=== PATIENT | female | born 1950 | race Two or more races ===

== ENCOUNTER 2021-11-22 00:23 | Inpatient (IN) | payer MEDICARE, OTHER ==
[~2021-11-22] VITALS: Ht 157.5 cm; Wt 57.2 kg
[~2021-11-22 00:23] MED LIST: CARB-96 PO; DOCU100T2 PO; ENTA200T PO; FAMO40TA7 PO; GABA-532 PO; LISI-768 PO; LORA1TAB PO; MECL-159 PO; PRAM1.5T7 PO; SERT100T12 PO; SIMV-46 PO; TRAM50TA2 PO; [UNRECOGNIZED DRUG - CODE] PO
--- NOTE | 2021-11-22 00:38 | NUR ---
SEEN BY DR MADRIGAL AT BEDSIDE
--- NOTE | 2021-11-22 00:56 | NUR ---
IFC F16 INSERTED. URINE SPECIMEN COLLECTED AND SENT TO LAB
--- NOTE | 2021-11-22 01:21 | NUR ---
CAME BACK FROM CT SCAN
--- NOTE | 2021-11-22 01:37 | NUR ---
VIDEOTAPE SALES REPRESENTATIVE AT BEDSIDE
[2021-11-22 02:16] LABS: BASOPHILS # (AUTO) 0.1 K/uL (0.0-0.2); EOSINOPHILS % (AUTO) 1.8 % (0.0-6.0); HEMATOCRIT 37 % (33-45); LYMPHOCYTES # (AUTO) 1.7 K/uL (0.8-4.8); LYMPHOCYTES % (AUTO) 25.8 % (20.0-44.0); MEAN CORPUSCULAR HGB CONC 36 g/dl (31.0-36.0); MEAN CORPUSCULAR VOLUME 85 fL (82-100); MONOCYTES # (AUTO) 0.5 K/uL (0.1-1.30); MONOCYTES % (AUTO) 8.1 % (2.0-12.0); NEUTROPHILS # (AUTO) 4.2 K/uL (1.8-8.9); NEUTROPHILS % (AUTO) 63.3 % (43.0-81.0); PLATELET COUNT (AUTO) 242 K/uL (150-450); WHITE BLOOD COUNT (AUTO) 6.6 K/uL (4.3-11.0)
--- NOTE | 2021-11-22 02:23 | NUR ---
DR. SHIVANI JIMENEZ FOR SURGERY CONSULT
--- NOTE | 2021-11-22 02:27 | NUR ---
NG TUBE INSERTED.
--- NOTE | 2021-11-22 02:27 | NUR ---
COVID SWAB DONE
[2021-11-22 02:34] LABS: CALCIUM, SERUM 9.1 mg/dL (8.5-10.1); CARBON DIOXIDE 33 mmol/L (21-32); CHLORIDE 101 mmol/L (98-107); CREATININE 0.6 mg/dL (0.6-1.3); GLUCOSE 109 mg/dL (74-106); SODIUM SERUM 139 mmol/L (136-145); UREA NITROGEN, BLOOD 10 mg/dL (7-18)
[2021-11-22 02:35] LABS: POTASSIUM 1.6 mmol/L (3.5-5.1)
--- NOTE | 2021-11-22 02:36 | NUR ---
CRITICAL : POTASSIUM 1.6
[2021-11-22 02:40] LABS: ALANINE AMINOTRANSFERASE 6 U/L (12-78); ALBUMIN 3.6 g/dL (3.4-5.0); ALKALINE PHOSPHATASE 57 U/L (46-116); ASPARTATE AMINOTRANSFERASE 17 U/L (15-37); BILIRUBIN,DIRECT 0.3 mg/dL (0.0-0.2); LIPASE 60 U/L (73-393); TOTAL PROTEIN, SERUM 7.8 g/dL (6.4-8.2)
[2021-11-22 02:40] LABS: BILIRUBIN,URINE NEGATIVE (NEGATIVE); COLOR,URINE YELLOW (YELLOW); LEUKOCYTE ESTERASE ,URINE NEGATIVE (NEGATIVE); NITRITE, URINE NEGATIVE (NEGATIVE); PROTEIN,URINE NEGATIVE (NEGATIVE); UGLUCOSE NEGATIVE (NEGATIVE); UROBILINOGEN,URINE 0.2 EU/dL (0.2)
[2021-11-22] MEDS: POTASSIUM CL. PREMIX PERIPHER. 50 ML IV SCH ×11 (02:40→10:10)
--- NOTE | 2021-11-22 02:40 | NUR ---
IV CANNULA G18 INSERTED ON RIGHT HAND. 1ST BAG OF KCL 10MEQ/50CC STARTED.
--- NOTE | 2021-11-22 02:55 | NUR ---
Saida vizcarra in [facility] - 11/22/21 at [address] PARRISH MANAGER INVENTORY MANAGEMENT SURGEON BARBARA ONCE AGAIN
--- NOTE | 2021-11-22 02:55 | NUR ---
DR. PARRISH SHELTER DIRECTOR SURGEON PAGED ONCE AGAIN
--- NOTE | 2021-11-22 03:00 | NUR ---
Saida vizcarra in ED - 11/22/21 at 1028 by ADOLFO IV CANNULA G18 INSERTED ON RIGHT HAND. NS FLUID STARTED TOGETHER WITH KCL DRIP.
--- NOTE | 2021-11-22 03:05 | NUR ---
CXR AND KUB XRAY DONE AT BEDSIDE.
--- NOTE | 2021-11-22 03:05 | NUR ---
WRONG DOCUMENTATION IN [facility] ABOUT KCL DRIP. KCL DRIP NOT ADMINISTERED AT 0305H.
--- NOTE | 2021-11-22 03:41 | NUR ---
2ND BAG OF KCL FINISHED. TO START 3RD BAG OF KCL DRIP
--- NOTE | 2021-11-22 03:41 | NUR ---
2ND BAG OF KCL 10MEQ/50ML STARTED.
--- NOTE | 2021-11-22 04:27 | NUR ---
CALLED DAUGHTER RUBY, INFORMED HER ABOUT HER MOM BEING IN THE HOSPITAL.
[2021-11-22] MEDS ORDERED: ACETAMINOPHEN 650 MG/SUPP.RECT RC PRN (04:30)
[2021-11-22] MEDS ORDERED: MAGNESIUM HYDROXIDE 30 ML UDC PO PRN ×2 (04:30→13:30)
[2021-11-22] MEDS ORDERED: ONDANSETRON HCL/PF 4 MG/2 ML VIAL IVP PRN (04:30)
[2021-11-22] MEDS ORDERED: Z GUARD REMEDY 4 OZ OINT TP PRN (04:30)
[2021-11-22] MEDS ORDERED: MORPHINE SULFATE INJ 2 MG/ML DISP.SYRIN IV PRN (04:30)
--- NOTE | 2021-11-22 04:51 | NUR ---
Saida vizcarra in ED - 11/22/21 at 0603 by ADOLFO 2ND BAG OF KCL DRIP FINISHED.
--- NOTE | 2021-11-22 04:52 | NUR ---
3RD BAG OF KCL 10MEQ/50ML STARTED.
--- NOTE | 2021-11-22 05:51 | NUR ---
3RD BAG KCL DRIP FINISHED, 4TH BAG OF KCL 10MEQ/50CC STARTED
[2021-11-22] MEDS ORDERED: POTASSIUM CL. PREMIX PERIPHER. 50 ML ONE ×5 (05:52→10:26)
--- NOTE | 2021-11-22 06:03 | NUR ---
REPORT GIVEN TO NELY HARRELL. PER RN, THEY CANNOT ACCOMODATE PATIENT IN 3WEST BECAUSE OF SERUM K WHICH IS 1.6. I EXPLAINED THAT PATIENT IS DNR. PER RN, PATIENT SHOULD BE ICU. DR MADRIGAL MADE AWARE.
--- NOTE | 2021-11-22 06:49 | NUR ---
REPORT GIVEN TO NELY CARBALLO
[2021-11-22] MEDS ORDERED: NA PHOS,M-B/NA PHOS,DI-BA 1 EA ENEMA RC STA (06:51)
--- NOTE | 2021-11-22 06:58 | NUR ---
MANUAL EXTRACTION OF FECES ATTEMPTED BY DR MADRIGAL. ONLY GAS WAS EXTRACTED.
--- NOTE | 2021-11-22 07:00 | NUR ---
4TH KCL DRIP FINISHED. STARTED 5TH BAG OF KCL 10MEQ/50ML.
[2021-11-22] MEDS ORDERED: NA PHOS,M-B/NA PHOS,DI-BA 1 EA ENEMA RC ONE (07:12)
--- NOTE | 2021-11-22 08:05 | NUR ---
5TH KCL DRIP FINISHED. 6TH KCL DRIP OF 10MEQ/50CC STARTED.
[2021-11-22] MEDS ORDERED: EYEL1KIT TP (08:08)
[2021-11-22] MEDS ORDERED: LACT10SO3 PO (08:08)
[2021-11-22] MEDS ORDERED: POTA-10 PO (08:08)
[2021-11-22] MEDS ORDERED: MIDO2.5T PO (08:08)
[2021-11-22] MEDS ORDERED: MULT-447 PO (08:08)
[2021-11-22] MEDS ORDERED: OMEG10006 PO (08:08)
[2021-11-22] MEDS ORDERED: ACET-868 PO (08:08)
[2021-11-22] MEDS ORDERED: ACET-2605 PO (08:08)
[2021-11-22] MEDS ORDERED: POLY15DR40 EACHEYE (08:08)
[2021-11-22] MEDS ORDERED: MAGN400O6 PO (08:08)
[2021-11-22] MEDS ORDERED: MAGN400T26 PO (08:08)
[2021-11-22] MEDS ORDERED: BISA10SU11 RC (08:08)
[2021-11-22] MEDS ORDERED: CARB1TAB21 PO (08:08)
[2021-11-22] MEDS ORDERED: NA P133E RC (08:08)
[2021-11-22] MEDS ORDERED: SENN-261 PO (08:08)
[2021-11-22] MEDS: IV NS 0.9% 1,000 ML IV PRN (08:15)
--- NOTE | 2021-11-22 09:09 | NUR ---
6TH KCL DRIP FINISHED. STARTED 7TH KCL DRIP OF 10MEQ/50CC.
--- NOTE | 2021-11-22 09:14 | NUR ---
DR YING CAME TO SEE PATIENT. HE ASKED TO REMOVE NG TUBE.
[2021-11-22] MEDS ORDERED: PANTOPRAZOLE 40 MG VIAL ONE (09:39)
[2021-11-22] MEDS: PANTOPRAZOLE 40 MG VIAL IV SCH (09:42)
--- NOTE | 2021-11-22 09:45 | NUR ---
CBC AND CHEM [address] YING. THE ORDERS ARE READ BACK, VERIFIED. NOTED AND CARRIED OUT.
[2021-11-22 10:42] LABS: BASOPHILS # (AUTO) 0.1 K/uL (0.0-0.2); BASOPHILS % (AUTO) 0.5 % (0.0-2.0); EOSINOPHILS % (AUTO) 0.3 % (0.0-6.0); HEMATOCRIT 39 % (33-45); HEMOGLOBIN 13.5 g/dL (11.5-14.8); LYMPHOCYTES # (AUTO) 1.3 K/uL (0.8-4.8); LYMPHOCYTES % (AUTO) 12.1 % (20.0-44.0); MEAN CORPUSCULAR HGB CONC 34 g/dl (31.0-36.0); MEAN CORPUSCULAR VOLUME 87 fL (82-100); MONOCYTES # (AUTO) 0.7 K/uL (0.1-1.30); MONOCYTES % (AUTO) 6.5 % (2.0-12.0); NEUTROPHILS # (AUTO) 8.4 K/uL (1.8-8.9); NEUTROPHILS % (AUTO) 80.6 % (43.0-81.0); PLATELET COUNT (AUTO) 268 K/uL (150-450); RED BLOOD CELL COUNT(AUTO) 4.53 MIL/uL (4.0-5.2); WHITE BLOOD COUNT (AUTO) 10.4 K/uL (4.3-11.0)
[2021-11-22 10:56] LABS: CALCIUM, SERUM 8.4 mg/dL (8.5-10.1); CREATININE 0.6 mg/dL (0.6-1.3)
[2021-11-22 11:02] LABS: POTASSIUM 2.3 mmol/L (3.5-5.1)
--- NOTE | 2021-11-22 11:10 | NUR ---
PATIENT SEEN BY DR YING. SAID THAT PATIENT CAN EAT. DIET REQUESTED FROM KITCHEN.
--- NOTE | 2021-11-22 11:10 | NUR ---
DR YING MADE AWARE OF BP 161/97 AND HR 98. STATED THAT HE WILL ENTER ORDER. PRIMARY NURSE RADHA MADE AWARE.
--- NOTE | 2021-11-22 11:25 | NUR ---
DR. YING DISCONTINUED NPO ORDER. HE SAID TO PUT PATIENT IN (FELISA, MECHANICALLY SOFT DIET THIN CONSISTENCY) START LUNCH TIME. ORDER READ BACK AND VERIFIED, NOTED AND CARRIED OUT. KITCHEN MADE AWARE.
--- NOTE | 2021-11-22 11:29 | NUR ---
GOT BED 308
--- NOTE | 2021-11-22 11:31 | NUR ---
8TH BAG OF KCL DRIP FINISHED. DR YING IS AWARE.
--- NOTE | 2021-11-22 12:02 | NUR ---
REPORT GIVEN TO NELY PINA. PATIENT WILL BE TRANSFERRING TO ROOM
[2021-11-22 12:19] LABS: CALCIUM, SERUM 8.4 mg/dL (8.5-10.1); CREATININE 0.6 mg/dL (0.6-1.3)
[2021-11-22 12:22] LABS: POTASSIUM 2.3 mmol/L (3.5-5.1)
--- NOTE | 2021-11-22 12:22 | NUR ---
DR YING CONTACTED FOR CONFIRMATION IF PATIENT WILL STILL BE IN TELE 308-2 INITIAL ORDER BY HERMINIO GIORDANO AT AROUND 0418AM DESPITE 1ST S.K OF 1.6 AND THE REPEAT OF S.K AT 2.3. DR YING AGREED TO PLACE PATIENT IN ROOM 308-2. WILL MOVE PATIENT TO ROOM. Addendum: 11/22/[address] YING AGREED FOR PATIENT TO BE ADMITTED IN TELE STATUS. NURSE PINA REMINDED TO CONTINUE FOLLOW UP WITH DR YING FOR POTASSIUM REPLACEMENT ( DR YING WAS NOTIFIED EARLIER BY ER NURSE AND DR YING TOLD THE ER NURSE THAT HE WILL ENTER POTASSIUM REPLACEMENT ORDERS).
--- NOTE | 2021-11-22 13:00 | NUR ---
PLATFORM MATERIAL HANDLER MANAGER RECEIVING NOTES PATIENT WAS RECEIVED A/O X 4, SINHALA SPEAKING, WITH TELE MONITOR IN PLACE READING NSR. PARKER CATHETER IN PLACE DRAINING DARK KEARA URINE TO GRAVITY. R HAND # [address] WITH NS INFUSING @ 75 ML/HR. NO COMPLAINTS OF PAIN OR DISCOMFORT AT THIS TIME. STOMACH DISTENSION NOTED DUE TO C/C SBO. SAFETY MEASURES IN PLACE: BED IN LOWEST LOCKED POSITION, SIDE RAILS UP X 3, CALL LIGHT WITHIN REACH. WILL CONTINUE TO MONITOR.
--- NOTE | 2021-11-22 13:01 | NUR ---
TRANSFERRED PATIENT TO ROOM
[2021-11-22] MEDS ORDERED: BISACODYL SUPP (10 MG) 10 MG/SUPP.RECT SUPP.RECT RC PRN (13:30)
[2021-11-22] MEDS ORDERED: ACETAMINOPHEN 325 MG TABLET PO PRN (13:30)
[2021-11-22] MEDS ORDERED: NA PHOS,M-B/NA PHOS,DI-BA 1 EA ENEMA RC PRN (13:30)
[2021-11-22] MEDS ORDERED: POTASSIUM CHLORIDE 20 MEQ TAB.PRT.SR PO ONE (14:00)
[2021-11-22 16:39] LABS: CALCIUM, SERUM 8.4 mg/dL (8.5-10.1); CARBON DIOXIDE 33 mmol/L (21-32); CHLORIDE 106 mmol/L (98-107); CREATININE 0.7 mg/dL (0.6-1.3); GLUCOSE 120 mg/dL (74-106); SODIUM SERUM 147 mmol/L (136-145); UREA NITROGEN, BLOOD 7 mg/dL (7-18)
[2021-11-22 16:44] LABS: POTASSIUM 2.4 mmol/L (3.5-5.1)
[2021-11-22] MEDS ORDERED: [UNRECOGNIZED DRUG - OTHER] TP SCH (17:00)
[2021-11-22] MEDS: MIDODRINE HCL 2.5 MG TABLET PO SCH (17:00)
[2021-11-22] MEDS: CARBIDOPA/LEVODOPA 25/100 MG 1 UDTAB PO SCH ×2 (17:29→20:28)
[2021-11-22] MEDS: POLYVINYL ALCOHOL 15 ML BOTTLE EACHEYE SCH (17:29)
[2021-11-22] MEDS: DOCUSATE SODIUM 100 MG CAPSULE PO SCH (17:29)
--- NOTE | 2021-11-22 19:30 | NUR ---
BRACE MAKER NOTES RECEIVED LAYING ON BED SLEEPING,AROUSABLE TO VERBAL STIMULI, A/O X3,SPEAK PARAGUAYAN,FAMILY MEMBERS AT BEDSIDE.AFIB UNCONTROLLED 117 ON TELE MONITOR THIS TIME.EARLIER AT 1915,MONITOR REPORTED PATIENT CONVERTED TO A-FIB FROM SR.STAT EKG WAS ORDERED AT 1921 UNDER HOSPITALIST HUNG,RESULT RELAYED TO HOSPITALIST AT 1999,WILL REVIEW THE PATIENT RECORD.
--- NOTE | 2021-11-22 19:45 | NUR ---
SPEEDOMETER MECHANIC NOTES OFFERED AGAIN TO HAVE NGT PLACEMENT BUT REFUSED.
[2021-11-22 20:00] VITALS: BP_SYST 101; BP_SYST 96; BP_DIAS 48; BP_DIAS 62
--- NOTE | 2021-11-22 20:28 | NUR ---
OVERNIGHT BABYSITTER NOTES C/O HEADACHE,TYLENOL 650MG PO,CRUSHED AND GIVEN WITH SIPS OF WATER,TAKEN WELL.
[2021-11-22] MEDS: LACTULOSE 10 G/15 ML UDC (PYXIS) PO SCH (22:00)
[2021-11-22] MEDS: SENNOSIDES 8.6 MG TABLET PO SCH (22:00)
[2021-11-22] MEDS: SIMVASTATIN 20 MG TABLET PO SCH (22:11)
[2021-11-22 23:38] VITALS: BP 106/55
[2021-11-23 00:02] VITALS: BP 106/55
[2021-11-23 04:00] VITALS: BP 123/62
--- NOTE | 2021-11-23 06:35 | NUR ---
DYEHOUSE WORKER NOTES SLEEP WELL AT NIGHT,NO N/V NOTED,HAD LOOSE BM X 2,OFFERED TWICE NGT PLACEMENT BUT REFUSED,ABDOMEN REMAINS DISTENDED BUT SOFT.MORNING CARE RENDERED.IN NO ACUTE DISTRESS.
[2021-11-23 06:54] LABS: BASOPHILS # (AUTO) 0.1 K/uL (0.0-0.2); BASOPHILS % (AUTO) 0.6 % (0.0-2.0); EOSINOPHILS % (AUTO) 0.3 % (0.0-6.0); HEMATOCRIT 34 % (33-45); HEMOGLOBIN 11.9 g/dL (11.5-14.8); LYMPHOCYTES # (AUTO) 1.5 K/uL (0.8-4.8); LYMPHOCYTES % (AUTO) 16.3 % (20.0-44.0); MEAN CORPUSCULAR HGB CONC 35 g/dl (31.0-36.0); MEAN CORPUSCULAR VOLUME 87 fL (82-100); MONOCYTES # (AUTO) 0.7 K/uL (0.1-1.30); MONOCYTES % (AUTO) 7.3 % (2.0-12.0); NEUTROPHILS # (AUTO) 6.8 K/uL (1.8-8.9); NEUTROPHILS % (AUTO) 75.5 % (43.0-81.0); PLATELET COUNT (AUTO) 237 K/uL (150-450); RED BLOOD CELL COUNT(AUTO) 3.91 MIL/uL (4.0-5.2)
--- NOTE | 2021-11-23 07:26 | NUR ---
DRAWER IN DOBBY LOOM OPENING NOTE RECEIVED PT IN BED AWAKE, A/O X3, ABLE TO MAKE NEEDS KNOWN. ON O2 AT 2L/MIN VIA NC, TOLERATING WELL. BREATHING EVEN AND UNLABORED. NOT IN ANY SIGN OF RESPIRATORY DISTRESS. ON CARDIAC TELE MONITOR WITH CURRENT READING OF AFIB CONTROLLED WITH HR 70. NO C/O CARDIAC DISTRESS VOICED AT THIS TIME. PARKER CATH IN PLACE AND DRAINING WELL. IV ACCESS IN RIGHT HAND INTACT AND PATENT WITH NS INFUSING AT 75ML/MIN. SAFETY MEASURES IN PLACE: BED IN LOWEST AND LOCKED POSITION, SIDE RAILS UPX2, AND CALL LIGHT WITHIN REACH. WILL CONTINUE TO MONITOR PT.
[2021-11-23 07:28] LABS: CALCIUM, SERUM 8.8 mg/dL (8.5-10.1); CREATININE 0.8 mg/dL (0.6-1.3); MAGNESIUM 2.3 mg/dL (1.8-2.4); PHOSPHORUS 3.1 mg/dL (2.5-4.9)
[2021-11-23 07:33] LABS: POTASSIUM 2.2 mmol/L (3.5-5.1)
--- NOTE | 2021-11-23 07:50 | NUR ---
RN NOTE RECEIVED A CALL FROM GRETA PIERSON AT 0733, REPORTED CRITICAL LAB VALUE OF POTASSIUM LEVEL 2.2. CALLED DR. YING AND MADE AWARE WITH ORDERS TO GIVE POTASSIUM CHLORIDE 80 MEQ PO X1 DOSE AND POTASSIUM 40 MEQ IV THEN REPEAT POTASSIUM LEVEL AFTER IV ONE HOUR COMPLETED. NO C/O CARDIAC DISTRESS VOICED AT THIS TIME. WILL CONTINUE TO MONITOR PT.
[2021-11-23] MEDS: POTASSIUM CL. PREMIX PERIPHER. 50 ML IV SCH ×4 (07:58→11:30)
[2021-11-23 08:00] VITALS: BP 123/79
[2021-11-23] MEDS ORDERED: POTASSIUM CHLORIDE 20 MEQ TAB.PRT.SR PO ONE (08:00)
[2021-11-23] MEDS: MULTIVIT W/MINERALS 1 TAB TABLET PO SCH (08:57)
[2021-11-23] MEDS: PANTOPRAZOLE 40 MG VIAL IV SCH (08:57)
[2021-11-23] MEDS: CARBIDOPA/LEVODOPA 25/100 MG 1 UDTAB PO SCH ×4 (08:57→21:39)
[2021-11-23] MEDS: MAGNESIUM OXIDE 400 MG TABLET PO SCH (08:57)
[2021-11-23] MEDS: MIDODRINE HCL 2.5 MG TABLET PO SCH (09:00)
[2021-11-23] MEDS ORDERED: Medication Not On Formulary EA (Omega-3 Fatty Acids (Omega-3) 1,000 MG) PO SCH (09:00)
[2021-11-23] MEDS: DOCUSATE SODIUM 100 MG CAPSULE PO SCH ×2 (09:00→16:06)
[2021-11-23] MEDS: POTASSIUM CHLORIDE 10 MEQ TABLET.SA PO SCH (09:02)
[2021-11-23] MEDS: POLYVINYL ALCOHOL 15 ML BOTTLE EACHEYE SCH ×3 (09:04→16:54)
[2021-11-23 12:00] VITALS: BP 131/66
[2021-11-23] MEDS: METOCLOPRAMIDE HCL 10 MG/2 ML VIAL IV SCH ×2 (14:43→20:38)
[2021-11-23] MEDS: IV NS 0.9% 1,000 ML IV PRN (15:02)
[2021-11-23 15:59] LABS: CALCIUM, SERUM 8.7 mg/dL (8.5-10.1); CARBON DIOXIDE 28 mmol/L (21-32); CHLORIDE 110 mmol/L (98-107); CREATININE 0.7 mg/dL (0.6-1.3); GLUCOSE 85 mg/dL (74-106); POTASSIUM 3.4 mmol/L (3.5-5.1); SODIUM SERUM 148 mmol/L (136-145); UREA NITROGEN, BLOOD 14 mg/dL (7-18)
[2021-11-23 16:00] VITALS: BP 159/80
[2021-11-23] MEDS: SIMETHICONE 80 MG TAB.CHEW PO SCH (16:06)
[2021-11-23] MEDS: MIDODRINE HCL (5MG) 5 MG TABLET PO SCH (16:07)
--- NOTE | 2021-11-23 19:22 | NUR ---
FUEL PILOT ENGINEER CLOSING NOTE PT IN BED AWAKE, A/O X3, ABLE TO MAKE NEEDS KNOWN. ON O2 AT 2L/MIN VIA NC, TOLERATING WELL. BREATHING EVEN AND UNLABORED. NOT IN ANY SIGN OF RESPIRATORY DISTRESS. ON CARDIAC TELE MONITOR WITH CURRENT READING OF AFIB CONTROLLED WITH HR 70. NO C/O CARDIAC DISTRESS VOICED AT THIS TIME. PARKER CATH IN PLACE AND DRAINING WELL. IV ACCESS IN RIGHT HAND INTACT AND PATENT WITH NS INFUSING AT 75ML/MIN. ALL NEEDS ATTENDED. KEPT CLEAN AND COMFORTABLE. SAFETY MEASURES IN PLACE: BED IN LOWEST AND LOCKED POSITION, SIDE RAILS UPX2, AND CALL LIGHT WITHIN REACH. ENDORSED TO INSTRUMENT REPAIRER NURSE FOR SHIRA.
--- NOTE | 2021-11-23 19:30 | NUR ---
RN OPENING NOTE PATIENT IN BED, AWAKE. PATIENT IS A/O X 3, ABLE TO MAKE NEEDS KNOWN. PATIENT ON 2LPM VIA NC TOLERATING WELL, NO SOB OR RESPIRATORY DISTRESS NOTED. PATIENT'S TELE MONITOR READS AFIB/AFLUTTER 66 BPM. PATIENT HAS A PARKER CATHETER IN PLACE DRAINING VIA GRAVITY. NO PAIN VERBALIZED AT THIS TIME. PATIENT'S ABDOMEN NOTED TO BE DISTENDED AND ROUND. R HAND 18 G PATENT AND INTACT WITH NS AT 75 ML/HR ONGOING. SAFETY MEASURES IN PLACE: BED LOCKED AND IN LOWEST POSITION, CALL LIGHT WITHIN REACH, SIDE RAILS UP. WILL MONITOR PATIENT CLOSELY.
[2021-11-23 20:00] VITALS: BP 150/83
[2021-11-23] MEDS: SIMVASTATIN 20 MG TABLET PO SCH (21:38)
[2021-11-23] MEDS: SENNOSIDES 8.6 MG TABLET PO SCH (21:57)
[2021-11-23] MEDS: LACTULOSE 10 G/15 ML UDC (PYXIS) PO SCH (21:57)
[2021-11-24] VITALS: BP 142/86
[2021-11-24] MEDS: METOCLOPRAMIDE HCL 10 MG/2 ML VIAL IV SCH ×4 (01:44→20:41)
[2021-11-24 04:00] VITALS: BP 151/86
[2021-11-24] MEDS: IV NS 0.9% 1,000 ML IV PRN (05:42)
[2021-11-24 06:23] LABS: BASOPHILS # (AUTO) 0.1 K/uL (0.0-0.2); BASOPHILS % (AUTO) 0.8 % (0.0-2.0); EOSINOPHILS % (AUTO) 1.5 % (0.0-6.0); HEMATOCRIT 33 % (33-45); HEMOGLOBIN 11.5 g/dL (11.5-14.8); LYMPHOCYTES # (AUTO) 1.2 K/uL (0.8-4.8); LYMPHOCYTES % (AUTO) 14.2 % (20.0-44.0); MEAN CORPUSCULAR HGB CONC 35 g/dl (31.0-36.0); MEAN CORPUSCULAR VOLUME 88 fL (82-100); MONOCYTES # (AUTO) 0.4 K/uL (0.1-1.30); MONOCYTES % (AUTO) 5.4 % (2.0-12.0); NEUTROPHILS # (AUTO) 6.5 K/uL (1.8-8.9); NEUTROPHILS % (AUTO) 78.1 % (43.0-81.0); PLATELET COUNT (AUTO) 208 K/uL (150-450); RED BLOOD CELL COUNT(AUTO) 3.79 MIL/uL (4.0-5.2); WHITE BLOOD COUNT (AUTO) 8.3 K/uL (4.3-11.0)
[2021-11-24 06:55] LABS: CALCIUM, SERUM 8.5 mg/dL (8.5-10.1); CREATININE 0.7 mg/dL (0.6-1.3); MAGNESIUM 2.4 mg/dL (1.8-2.4); PHOSPHORUS 2.7 mg/dL (2.5-4.9)
--- NOTE | 2021-11-24 07:30 | NUR ---
PT RECEIVED RESTING COMFORTABLY IN BED. NO S/S OR C/O PAIN OR DISTRESS NOTED. SIDE RAILS UP X2, CALL LIGHT LEFT WITHIN REACH. WILL CONTINUE PLAN OF CARE.
[2021-11-24 07:35] LABS: POTASSIUM 2.6 mmol/L (3.5-5.1)
[2021-11-24 08:00] VITALS: BP 162/98
[2021-11-24] MEDS ORDERED: POTASSIUM CHLORIDE 20 MEQ TAB.PRT.SR PO ONE (08:30)
[2021-11-24] MEDS: IV PREMIX D5 1/2NS + KCL 1,000 ML IV PRN ×2 (08:42→22:56)
[2021-11-24] MEDS: POTASSIUM CL. PREMIX PERIPHER. 50 ML IV SCH ×4 (08:42→15:17)
[2021-11-24] MEDS: DOCUSATE SODIUM 100 MG CAPSULE PO SCH ×2 (08:43→16:48)
[2021-11-24] MEDS: MAGNESIUM OXIDE 400 MG TABLET PO SCH (08:43)
[2021-11-24] MEDS: PANTOPRAZOLE 40 MG VIAL IV SCH (08:43)
[2021-11-24] MEDS: SIMETHICONE 80 MG TAB.CHEW PO SCH ×2 (08:43→16:48)
[2021-11-24] MEDS: MULTIVIT W/MINERALS 1 TAB TABLET PO SCH (08:43)
[2021-11-24] MEDS: POTASSIUM CHLORIDE 10 MEQ TABLET.SA PO SCH (08:43)
[2021-11-24] MEDS: CARBIDOPA/LEVODOPA 25/100 MG 1 UDTAB PO SCH ×4 (08:43→21:15)
[2021-11-24] MEDS: MIDODRINE HCL (5MG) 5 MG TABLET PO SCH ×2 (08:44→16:49)
[2021-11-24] MEDS: POLYVINYL ALCOHOL 15 ML BOTTLE EACHEYE SCH ×3 (09:14→16:50)
[2021-11-24 10:00] VITALS: BP 162/98
[2021-11-24] MEDS ORDERED: PETROLATUM,WHITE PACKET 5 GM PACKET TP PRN (10:00)
--- NOTE | 2021-11-24 12:00 | NUR ---
RECTAL TUBE INSERTED. PATENT. WILL CONTINUE TO MONITOR.
[2021-11-24 15:59] LABS: CALCIUM, SERUM 8.1 mg/dL (8.5-10.1); CREATININE 0.6 mg/dL (0.6-1.3); POTASSIUM 3.4 mmol/L (3.5-5.1)
[2021-11-24] MEDS ORDERED: PHENYLEPHRINE/SHK LV/MO/PET,WH 30 GM TUBE RC PRN (17:00)
--- NOTE | 2021-11-24 18:59 | NUR ---
PT RECEIVED RESTING COMFORTABLY IN BED. NO S/S OR C/O PAIN OR DISTRESS NOTED. SIDE RAILS UP X2, CALL LIGHT LEFT WITHIN REACH. WILL CONTINUE PLAN OF CARE. Addendum: 11/24/21 at 1902 by ROSSY GIBSON RN WRONG TIME
--- NOTE | 2021-11-24 19:02 | NUR ---
CHANGE OF SHIFT REPORT. PT RESTING COMFORTABLY IN BED. NO S/S OR C/O PAIN OR DISTRESS NOTED. SIDE RAILS UP X2, CALL LIGHT LEFT WITHIN REACH. PT KEPT CLEAN, DRY, AND COMFORTABLE. NO SIGNIFICANT CHANGES SINCE PREVIOUS SHIFT. WILL GIVE REPORT TO PAVITHRA MCKAY.
--- NOTE | 2021-11-24 19:20 | NUR ---
RN OPENING NOTE PATIENT IN BED, AWAKE. PATIENT IS A/O X 2-3, ABLE TO MAKE NEEDS KNOWN. PATIENT ON RA. PATIENT HAS A PARKER CATHETER IN PLACE DRAINING VIA GRAVITY. NO PAIN VERBALIZED AT THIS TIME. PATIENT'S ABDOMEN NOTED TO BE DISTENDED AND ROUND. R HAND 18 G PATENT AND INTACT WITH ONGOING IVF. FLEXISEAL PLACED DRAINING VERY LOOSE STOOL. SAFETY MEASURES IN PLACE: BED LOCKED AND IN LOWEST POSITION, CALL LIGHT WITHIN REACH, SIDE RAILS UP. WILL MONITOR PATIENT CLOSELY.
[2021-11-24 20:00] VITALS: BP 147/82
--- NOTE | 2021-11-24 20:00 | NUR ---
PATIENT SEEN BY DR. BOBO AT BEDSIDE
--- NOTE | 2021-11-24 20:32 | NUR ---
RN NOTE URINE SPECIMEN COLLECTED. PLACED IN THE FRIDGE. AWAITING LAB PEWTER FINISHER.
[2021-11-24] MEDS: SIMVASTATIN 20 MG TABLET PO SCH (21:15)
[2021-11-24] MEDS: LACTULOSE 10 G/15 ML UDC (PYXIS) PO SCH (22:00)
[2021-11-24] MEDS: SENNOSIDES 8.6 MG TABLET PO SCH (22:00)
[2021-11-24] MEDS ORDERED: IV PREMIX D5 1/2NS + KCL 1,000 ML IV ONE (22:15)
[2021-11-25] MEDS: ACETAMINOPHEN ES 500 MG TABLET PO PRN (01:30)
[2021-11-25] MEDS: METOCLOPRAMIDE HCL 10 MG/2 ML VIAL IV SCH ×4 (01:30→20:13)
--- NOTE | 2021-11-25 01:30 | NUR ---
RN NOTE GEN PAIN 10/30, TYLENOL ES GIVEN
--- NOTE | 2021-11-25 06:58 | NUR ---
RN CLOSING NOTE PATIENT IN BED, EYES CLOSED, EASILY AWAKENED. PATIENT IS A/O X 2-3, ABLE TO MAKE NEEDS KNOWN. PATIENT ON RA. PATIENT HAS A PARKER CATHETER IN PLACE DRAINING VIA GRAVITY. PAIN MANAGED WITH TYLENOL AND PREPARATION H ON THE RECTUM. PATIENT'S ABDOMEN NOTED TO BE DISTENDED, MORE SOFT NOW. R HAND 18 G PATENT AND INTACT WITH ONGOING D5 1/2 NS WITH 20 MEQ AT 100 ML/HR. FLEXISEAL PLACED DRAINING VERY LOOSE STOOL, COLLECTION BAG CHANGED. SAFETY MEASURES IN PLACE: BED LOCKED AND IN LOWEST POSITION, CALL LIGHT WITHIN REACH, SIDE RAILS UP. ALL NEEDS MET AND ATTENDED. ALL ORDERS CARRIED OUT. WILL ENDORSE TO DAYS SHIFT NURSE FOR SHIRA.
--- NOTE | 2021-11-25 07:30 | NUR ---
MS RN OPENING NOTES RECEIVED PATIENT ON BED, AWAKE AND A/O X 2-3, ABLE TO MAKE NEEDS KNOWN. ON ROOM AIR TOLERATING WELL. NO SOB NOTED. NOT IN DISTRESS. WITH PARKER CATHETER IN PLACED DRAINING KEARA COLORED URINE. WITH NO COMPLAINTS OF PAIN OR DISCOMFORT AT THIS TIME. WITH DISTENDED ABDOMEN NOTED. WITH IV ACCESS AT THE RIGHT HAND 18G PATENT AND INTACT WITH ONGOING IVF D5 1/2NS WITH 20MEQ KCL AT 100ML/HR INFUSING WELL. WITH FLEXISEAL PLACED DRAINING VERY LOOSE STOOL. SAFETY MEASURES IN PLACE: BED LOCKED AND IN LOWEST POSITION, CALL LIGHT WITHIN REACH, SIDE RAILS UP. WILL CONTINUE TO MONITOR.
[2021-11-25 08:00] VITALS: BP 169/96
[2021-11-25] MEDS: MIDODRINE HCL (5MG) 5 MG TABLET PO SCH ×2 (09:00→16:58)
[2021-11-25] MEDS: DOCUSATE SODIUM 100 MG CAPSULE PO SCH ×2 (09:00→16:58)
[2021-11-25] MEDS: SIMETHICONE 80 MG TAB.CHEW PO SCH ×2 (10:00→16:58)
[2021-11-25] MEDS: MAGNESIUM OXIDE 400 MG TABLET PO SCH (10:01)
[2021-11-25] MEDS: CLONIDINE HCL 0.1 MG TABLET PO PRN (10:01)
[2021-11-25] MEDS: POTASSIUM CHLORIDE 10 MEQ TABLET.SA PO SCH (10:01)
[2021-11-25] MEDS: PANTOPRAZOLE 40 MG VIAL IV SCH (10:01)
[2021-11-25] MEDS: MULTIVIT W/MINERALS 1 TAB TABLET PO SCH (10:01)
[2021-11-25] MEDS: CARBIDOPA/LEVODOPA 25/100 MG 1 UDTAB PO SCH ×4 (10:01→20:13)
[2021-11-25] MEDS: POTASSIUM CL. PREMIX PERIPHER. 50 ML IV SCH ×4 (10:02→12:54)
[2021-11-25] MEDS: POLYVINYL ALCOHOL 15 ML BOTTLE EACHEYE SCH ×3 (10:14→16:58)
[2021-11-25] MEDS ORDERED: POTASSIUM CL. PREMIX PERIPHER. 50 ML IV SCH (14:00)
[2021-11-25] MEDS ORDERED: IV PREMIX D5 1/2NS + KCL 1,000 ML IV SCH (15:00)
[2021-11-25] MEDS ORDERED: IV PREMIX D5 1/2NS + KCL 1,000 ML IV PRN (15:07)
[2021-11-25 16:00] VITALS: BP 142/93
--- NOTE | 2021-11-25 18:13 | NUR ---
MS RN CLOSING NOTES PATIENT ON BED, AWAKE AND A/O X 2-3, ABLE TO MAKE NEEDS KNOWN. ON ROOM AIR TOLERATING WELL. NO SOB NOTED. NOT IN DISTRESS. WITH PARKER CATHETER IN PLACED DRAINING KEARA COLORED URINE. WITH NO COMPLAINTS OF PAIN OR DISCOMFORT AT THIS TIME. WITH DISTENDED ABDOMEN NOTED. WITH IV ACCESS AT THE RIGHT HAND 18G PATENT AND INTACT WITH ONGOING IVF D5 1/2NS WITH 20MEQ KCL AT 100ML/HR INFUSING WELL. WITH FLEXISEAL PLACED DRAINING VERY LOOSE STOOL. DUE MEDS GIVEN. SAFETY MEASURES IN PLACE: BED LOCKED AND IN LOWEST POSITION, CALL LIGHT WITHIN REACH, SIDE RAILS UP. WILL ENDORSE TO NEXT SHIFT FOR SHIRA.
--- NOTE | 2021-11-25 19:20 | NUR ---
RN NOTE PT AWAKE IN BED, A/OX2-3, ABLE TO VERBALIZE NEEDS. SHE DENIES ANY PAIN AT THIS TIME. RESPIRATIONS EVEN/UNLABORED. IV SITE RH #18G INTACT/PATENT, INFUSING KCL 20MEQ @100ML/HR. FLEXI-SEAL AND F/C IN PLACE AND DRAINING WELL. PT IN NO ACUTE DISTRESS. SAFETY MEASURES IN PLACE, BED IN LOWEST LOCKED POSITION, S/R UPX2, CALL LIGHT WITHIN REACH. WILL CONT TO MONITOR.
[2021-11-25 20:00] VITALS: BP 143/81
[2021-11-25] MEDS: LACTULOSE 10 G/15 ML UDC (PYXIS) PO SCH (21:16)
[2021-11-25] MEDS: SIMVASTATIN 20 MG TABLET PO SCH (21:16)
[2021-11-25] MEDS: SENNOSIDES 8.6 MG TABLET PO SCH (21:16)
[2021-11-26] MEDS: METOCLOPRAMIDE HCL 10 MG/2 ML VIAL IV SCH ×4 (02:29→19:47)
[2021-11-26 06:44] LABS: BASOPHILS % (AUTO) 0.5 % (0.0-2.0); EOSINOPHILS % (AUTO) 0.8 % (0.0-6.0); HEMATOCRIT 36 % (33-45); HEMOGLOBIN 12.7 g/dL (11.5-14.8); LYMPHOCYTES # (AUTO) 0.8 K/uL (0.8-4.8); LYMPHOCYTES % (AUTO) 9.5 % (20.0-44.0); MEAN CORPUSCULAR HGB CONC 35 g/dl (31.0-36.0); MEAN CORPUSCULAR VOLUME 87 fL (82-100); MONOCYTES # (AUTO) 0.5 K/uL (0.1-1.30); MONOCYTES % (AUTO) 6.2 % (2.0-12.0); PLATELET COUNT (AUTO) 258 K/uL (150-450); RED BLOOD CELL COUNT(AUTO) 4.18 MIL/uL (4.0-5.2); WHITE BLOOD COUNT (AUTO) 8.4 K/uL (4.3-11.0)
[2021-11-26 06:55] LABS: CALCIUM, SERUM 8.8 mg/dL (8.5-10.1); CREATININE 0.6 mg/dL (0.6-1.3)
--- NOTE | 2021-11-26 07:10 | NUR ---
RN NOTE PT RESTING IN BED, EASILY AROUSABLE TO STIMULI. A/OX2-3, ABLE TO VERBALIZE NEEDS. PT DENIES PAIN AT THIS TIME. DENIES SOB, DENIES N/V. IV ACCESS TO RH #18G INTACT/PATENT, INFUSING KCL ORDERED. FLEXI SEAL IN PLACE, 200ML OUTPUT. F/C IN PLACE, OUTPUT 1600ML THIS SHIFT. PT SLEPT WELL DURING THE NIGHT. NO ACUTE DISTRESS NOTED. SAFETY MEASURES MAINTAINED. ENDORSED TO NEXT SHIFT NURSE.
[2021-11-26 07:27] LABS: POTASSIUM 2.5 mmol/L (3.5-5.1)
--- NOTE | 2021-11-26 07:57 | NUR ---
RN OPENING NOTE PATIENT RECEIVED IN BED, AO X 2-3, ABLE TO RESPONDS ALL STIMULI. IN NO ACUTE DISTRESS NOTED. RESPIRATORY EVEN AND UNLABORED ON ROOM AIR. SKIN IS WARM TO TOUCH, KEEP CLEAN/DRY. KEPT ELEVATED HOB FOR ENSURE AIRWAY AND ASPIRATION PRECAUTION, ALSO LOWEST POSITION OF THE BED, S/R UP X 3, BED ALARM IS ON AT ALL THE TIMES. ALL SAFETY PRECAUTION APPLIED. CALL LIGHT WITHIN REACH, WILL CONTINUE TO MONITOR.
[2021-11-26] MEDS ORDERED: POTASSIUM CHLORIDE 20 MEQ TAB.PRT.SR PO ONE (08:00)
[2021-11-26] MEDS: MULTIVIT W/MINERALS 1 TAB TABLET PO SCH (08:36)
[2021-11-26] MEDS: CARBIDOPA/LEVODOPA 25/100 MG 1 UDTAB PO SCH ×4 (08:36→21:03)
[2021-11-26] MEDS: DOCUSATE SODIUM 100 MG CAPSULE PO SCH ×2 (08:36→18:01)
[2021-11-26] MEDS: PANTOPRAZOLE 40 MG VIAL IV SCH (08:36)
[2021-11-26] MEDS: SIMETHICONE 80 MG TAB.CHEW PO SCH ×2 (08:36→18:01)
[2021-11-26] MEDS: MAGNESIUM OXIDE 400 MG TABLET PO SCH (08:36)
[2021-11-26] MEDS: POTASSIUM CHLORIDE 10 MEQ TABLET.SA PO SCH (08:36)
[2021-11-26] MEDS: POLYVINYL ALCOHOL 15 ML BOTTLE EACHEYE SCH ×3 (08:47→18:02)
[2021-11-26] MEDS: MIDODRINE HCL (5MG) 5 MG TABLET PO SCH ×2 (09:00→17:00)
[2021-11-26] MEDS: IV PREMIX D5 1/2NS + KCL 1,000 ML IV SCH ×2 (10:03→19:47)
[2021-11-26 15:25] LABS: CALCIUM, SERUM 8.5 mg/dL (8.5-10.1); CARBON DIOXIDE 28 mmol/L (21-32); CHLORIDE 106 mmol/L (98-107); CREATININE 0.5 mg/dL (0.6-1.3); GLUCOSE 140 mg/dL (74-106); POTASSIUM 2.9 mmol/L (3.5-5.1); SODIUM SERUM 141 mmol/L (136-145); UREA NITROGEN, BLOOD 2 mg/dL (7-18)
--- NOTE | 2021-11-26 18:00 | NUR ---
RN CLOSING NOTE PATIENT IN BED RESTING. IN NO ACUTE DISTRESS NOTED. RESPIRATORY EVEN AND UNLABORED ON ROOM AIR. SKIN IS WARM TO TOUCH, KEEP CLEAN/DRY. KEPT ELEVATED HOB FOR ENSURE AIRWAY AND ASPIRATION PRECAUTION, BED IN LOWEST POSITION AND LOCK. ENCOURAGED PATIENT TO SIDE - LYING POSITION TO ASSIST GAS PASS THROUGH. BED ALARM IS ON AT ALL THE TIMES. SAFETY MEASURED IN PLACED. CALL LIGHT WITHIN REACH, WILL ENDORSED TO NEXT SHIFT.
--- NOTE | 2021-11-26 19:33 | NUR ---
RN OPENING NOTES RECEIVED PT IN BED, AWAKE. AOx2-3. ON RA AND TOLERATING WELL. NO SOB NOTED. NO S/SX OF RESPIRATORY DISTRESS NOTED. IV ACCESS IN R HAND #18G RUNNING D51/2NS WITH POTASSIUM CHLORIDE WITH RATE OF 100 ML/HR. SAFETY PRECAUTIONS IN PLACE: BED IN LOWEST, LOCKED POSITION, SIDERAILS UPx2, AND BRAKES ON. TABLE AND CALL LIGHT WITHIN REACH. WILL CONTINUE TO MONITOR.
[2021-11-26 20:00] VITALS: BP 163/86
[2021-11-26] MEDS: SIMVASTATIN 20 MG TABLET PO SCH (21:03)
[2021-11-26] MEDS: CLONIDINE HCL 0.1 MG TABLET PO PRN (21:03)
[2021-11-26] MEDS: SENNOSIDES 8.6 MG TABLET PO SCH (21:03)
[2021-11-26] MEDS: LACTULOSE 10 G/15 ML UDC (PYXIS) PO SCH (21:03)
[2021-11-27] MEDS: METOCLOPRAMIDE HCL 10 MG/2 ML VIAL IV SCH ×4 (03:00→19:52)
[2021-11-27] MEDS: IV PREMIX D5 1/2NS + KCL 1,000 ML IV SCH ×2 (05:28→15:17)
--- NOTE | 2021-11-27 06:57 | NUR ---
RN CLOSING NOTES PT IN BED, AWAKE. AOx4, ABLE TO MAKE NEEDS KNOWN. ON RA AND TOLERATING WELL. NO SOB NOTED. NO S/SX OF RESPIRATORY DISTRESS NOTED. IV ACCESS IN R HAND #18G RUNNING D51/2NS WITH POTASSIUM CHLORIDE WITH RATE OF 100 ML/HR. ALL ORDERS CARRIED OUT. ALL NEEDS MET. PT KEPT CLEAN AND DRY. SAFETY PRECAUTIONS IN PLACE: BED IN LOWEST, LOCKED POSITION, SIDERAILS UPx2, AND BRAKES ON. TABLE AND CALL LIGHT WITHIN REACH. WILL ENDORSE TO ONCOMING SHIFT FOR SHIRA.
[2021-11-27 07:49] LABS: CALCIUM, SERUM 8.9 mg/dL (8.5-10.1); CREATININE 0.6 mg/dL (0.6-1.3)
--- NOTE | 2021-11-27 07:52 | NUR ---
RN OPENING NOTE PATIENT RECEIVED IN BED, ALERT AND ORIENTED, ABLE TO RESPONDS ALL STIMULI. IN NO ACUTE DISTRESS NOTED. RESPIRATORY EVEN AND UNLABORED ON ROOM AIR. SKIN IS WARM TO TOUCH, KEEP CLEAN/DRY. PARKER CONNECTING TO URINE BAG AND FLEXI-SEAL FROM RECTAL TO THE BAG. WILL CONTINUE TO MONITOR. KEPT ELEVATED HOB FOR ENSURE AIRWAY AND ASPIRATION PRECAUTION, ALSO LOWEST POSITION OF THE BED, S/R UP X 3, BED ALARM IS ON AT ALL THE TIMES. ALL SAFETY PRECAUTION APPLIED. CALL LIGHT WITHIN REACH, WILL CONTINUE TO MONITOR.
[2021-11-27 08:09] LABS: POTASSIUM 2.8 mmol/L (3.5-5.1)
[2021-11-27 08:15] LABS: BASOPHILS % (AUTO) 0.5 % (0.0-2.0); EOSINOPHILS % (AUTO) 1.9 % (0.0-6.0); HEMATOCRIT 36 % (33-45); HEMOGLOBIN 12.4 g/dL (11.5-14.8); LYMPHOCYTES # (AUTO) 1.1 K/uL (0.8-4.8); MEAN CORPUSCULAR HGB CONC 34 g/dl (31.0-36.0); MEAN CORPUSCULAR VOLUME 87 fL (82-100); MONOCYTES # (AUTO) 0.5 K/uL (0.1-1.30); MONOCYTES % (AUTO) 6.8 % (2.0-12.0); NEUTROPHILS # (AUTO) 5.4 K/uL (1.8-8.9); NEUTROPHILS % (AUTO) 75.8 % (43.0-81.0); PLATELET COUNT (AUTO) 241 K/uL (150-450); RED BLOOD CELL COUNT(AUTO) 4.12 MIL/uL (4.0-5.2); WHITE BLOOD COUNT (AUTO) 7.1 K/uL (4.3-11.0)
[2021-11-27] MEDS: CARBIDOPA/LEVODOPA 25/100 MG 1 UDTAB PO SCH ×4 (08:33→21:11)
[2021-11-27] MEDS: SIMETHICONE 80 MG TAB.CHEW PO SCH ×2 (08:33→16:47)
[2021-11-27] MEDS: DOCUSATE SODIUM 100 MG CAPSULE PO SCH ×2 (08:33→17:00)
[2021-11-27] MEDS: POTASSIUM CHLORIDE 10 MEQ TABLET.SA PO SCH (08:34)
[2021-11-27] MEDS: PANTOPRAZOLE 40 MG VIAL IV SCH (08:34)
[2021-11-27] MEDS: MULTIVIT W/MINERALS 1 TAB TABLET PO SCH (08:34)
[2021-11-27] MEDS: MIDODRINE HCL (5MG) 5 MG TABLET PO SCH ×2 (08:34→15:17)
[2021-11-27] MEDS: MAGNESIUM OXIDE 400 MG TABLET PO SCH (08:34)
[2021-11-27] MEDS: POLYVINYL ALCOHOL 15 ML BOTTLE EACHEYE SCH ×3 (08:38→16:51)
[2021-11-27] MEDS ORDERED: POTASSIUM CHLORIDE 20 MEQ TAB.PRT.SR PO ONE (09:00)
[2021-11-27] MEDS: POTASSIUM CL. PREMIX PERIPHER. 50 ML IV SCH ×4 (10:01→13:47)
[2021-11-27 16:12] LABS: CALCIUM, SERUM 8.3 mg/dL (8.5-10.1); CARBON DIOXIDE 25 mmol/L (21-32); CHLORIDE 107 mmol/L (98-107); CREATININE 0.5 mg/dL (0.6-1.3); GLUCOSE 163 mg/dL (74-106); POTASSIUM 3.9 mmol/L (3.5-5.1); SODIUM SERUM 140 mmol/L (136-145); UREA NITROGEN, BLOOD 2 mg/dL (7-18)
[2021-11-27] MEDS: ENSURE CLEAR 237 ML LIQUID (MIX BERRY) PO SCH (17:17)
--- NOTE | 2021-11-27 18:32 | NUR ---
RN CLOSING NOTE PATIENT IN BED RESTING. IN NO ACUTE DISTRESS NOTED. RESPIRATORY EVEN AND UNLABORED ON ROOM AIR. SKIN IS WARM TO TOUCH, KEEP CLEAN/DRY. KEPT ELEVATED HOB FOR ENSURE AIRWAY AND ASPIRATION PRECAUTION, BED IN LOWEST POSITION AND LOCK. PATIENT REQUESTED REMOVE THE FLEXI-SEAL DUE TO PAIN AND REMOVED. BED ALARM IS ON AT ALL THE TIMES. SAFETY MEASURED IN PLACED. CALL LIGHT WITHIN REACH, WILL ENDORSED TO NEXT SHIFT.
--- NOTE | 2021-11-27 19:34 | NUR ---
RN OPENING NOTES RECEIVED PT IN BED, ASLEEP, AWAKENS TO VERBAL STIMULI. AOx4, NAMIBIAN AND URDU SPEAKING. ON RA AND TOLERATING WELL. NO SOB NOTED. NO S/SX OF RESPIRATORY DISTRESS NOTED. IV ACCESS IN R HAND #18G RUNNING D51/2NS WITH POTASSIUM CHLORIDE WITH RATE OF 100 ML/HR. SAFETY PRECAUTIONS IN PLACE: BED IN LOWEST, LOCKED POSITION, SIDERAILS UPx2, AND BRAKES ON. TABLE AND CALL LIGHT WITHIN REACH. WILL CONTINUE TO MONITOR.
[2021-11-27 20:24] VITALS: BP 128/73
[2021-11-27] MEDS: SIMVASTATIN 20 MG TABLET PO SCH (21:11)
[2021-11-27] MEDS: SENNOSIDES 8.6 MG TABLET PO SCH (21:11)
[2021-11-27] MEDS: LACTULOSE 10 G/15 ML UDC (PYXIS) PO SCH (21:11)
[2021-11-28] MEDS: IV PREMIX D5 1/2NS + KCL 1,000 ML IV SCH ×3 (01:03→22:11)
[2021-11-28] MEDS: METOCLOPRAMIDE HCL 10 MG/2 ML VIAL IV SCH ×4 (02:14→20:00)
[2021-11-28 06:10] LABS: BASOPHILS # (AUTO) 0.1 K/uL (0.0-0.2); HEMATOCRIT 33 % (33-45); HEMOGLOBIN 11.1 g/dL (11.5-14.8); LYMPHOCYTES # (AUTO) 1.1 K/uL (0.8-4.8); MEAN CORPUSCULAR HGB CONC 33 g/dl (31.0-36.0); MEAN CORPUSCULAR VOLUME 90 fL (82-100); MONOCYTES # (AUTO) 0.5 K/uL (0.1-1.30); MONOCYTES % (AUTO) 7.6 % (2.0-12.0); NEUTROPHILS # (AUTO) 4.2 K/uL (1.8-8.9); NEUTROPHILS % (AUTO) 69.4 % (43.0-81.0); PLATELET COUNT (AUTO) 224 K/uL (150-450); RED BLOOD CELL COUNT(AUTO) 3.71 MIL/uL (4.0-5.2)
--- NOTE | 2021-11-28 07:30 | NUR ---
MS RN OPENING NOTES RECEIVED PT ON BED AWAKE AND AOx4, GREEK AND WOLOF SPEAKING. ON RA TOLERATING WELL. NO SOB NOTED. NO S/SX OF RESPIRATORY DISTRESS NOTED. IV ACCESS AT RIGHT HAND #18G RUNNING D51/2NS WITH 20MEQ KCL AT 100 ML/HR INFUSING WELL. SAFETY PRECAUTIONS IN PLACE: BED IN LOWEST, LOCKED POSITION, SIDE RAILS UPx2, AND BRAKES ON. TABLE AND CALL LIGHT WITHIN REACH. WILL CONTINUE TO MONITOR.
--- NOTE | 2021-11-28 07:30 | NUR ---
RN CLOSING NOTES PT IN BED, ASLEEP, AWAKENS TO VERBAL STIMULI. AOx4, MACEDONIAN AND UPPER SORBIAN SPEAKING. ON RA AND TOLERATING WELL. NO SOB NOTED. NO S/SX OF RESPIRATORY DISTRESS NOTED. IV ACCESS IN R HAND #18G RUNNING D51/2NS WITH POTASSIUM CHLORIDE WITH RATE OF 100 ML/HR. ALL ORDERS CARRIED OUT. ALL NEEDS MET. PT KEPT CLEAN AND DRY. SAFETY PRECAUTIONS IN PLACE: BED IN LOWEST, LOCKED POSITION, SIDERAILS UPx2, AND BRAKES ON. TABLE AND CALL LIGHT WITHIN REACH. WILL ENDORSE TO ONCOMING SHIFT FOR SHIRA.
[2021-11-28 08:00] VITALS: BP 155/90
[2021-11-28 08:22] LABS: CALCIUM, SERUM 8.6 mg/dL (8.5-10.1); CREATININE 0.6 mg/dL (0.6-1.3); MAGNESIUM 1.9 mg/dL (1.8-2.4); PHOSPHORUS 2.9 mg/dL (2.5-4.9); POTASSIUM 3.7 mmol/L (3.5-5.1)
[2021-11-28] MEDS: MAGNESIUM OXIDE 400 MG TABLET PO SCH (09:34)
[2021-11-28] MEDS: MULTIVIT W/MINERALS 1 TAB TABLET PO SCH (09:34)
[2021-11-28] MEDS: POTASSIUM CHLORIDE 10 MEQ TABLET.SA PO SCH (09:34)
[2021-11-28] MEDS: DOCUSATE SODIUM 100 MG CAPSULE PO SCH ×2 (09:34→17:35)
[2021-11-28] MEDS: PANTOPRAZOLE 40 MG VIAL IV SCH (09:34)
[2021-11-28] MEDS: CARBIDOPA/LEVODOPA 25/100 MG 1 UDTAB PO SCH ×4 (09:34→21:15)
[2021-11-28] MEDS: SIMETHICONE 80 MG TAB.CHEW PO SCH ×2 (09:36→17:35)
[2021-11-28] MEDS: ENSURE CLEAR 237 ML LIQUID (MIX BERRY) PO SCH ×2 (09:37→17:35)
[2021-11-28] MEDS: POLYVINYL ALCOHOL 15 ML BOTTLE EACHEYE SCH ×3 (09:41→17:36)
[2021-11-28 16:00] VITALS: BP 150/100
--- NOTE | 2021-11-28 17:30 | NUR ---
RN NOTE MIDLINE NURSE INSERTED MIDLINE IV ACCESS AT RIGHT UPPER ARM DUE TO MULTIPLE ATTEMPTS OF IV INSERTION.
[2021-11-28] MEDS: ACETAMINOPHEN ES 500 MG TABLET PO PRN (17:50)
--- NOTE | 2021-11-28 19:35 | NUR ---
MS RN CLOSING NOTES PT ON BED RESTING AND AOx4, LIBERIAN AND CHINESE SPEAKING. ON RA TOLERATING WELL. NO SOB NOTED. NO S/SX OF RESPIRATORY DISTRESS NOTED. IV ACCESS AT RIGHT UPPER ARM MIDLINE WITH IVF RUNNING D51/2NS WITH 20MEQ KCL AT 100 ML/HR INFUSING WELL. DUE MEDS GIVEN. SAFETY PRECAUTIONS IN PLACE: BED IN LOWEST, LOCKED POSITION, SIDE RAILS UPx2, AND BRAKES ON. TABLE AND CALL LIGHT WITHIN REACH. WILL ENDORSE TO NEXT SHIFT FOR SHIRA.
--- NOTE | 2021-11-28 19:45 | NUR ---
MS RN NOTES RECEIVED ON BED A/O X X4,BREATHING NON LABORED,PARKER CATH IN PLACE DRAINING YELLOWISH OUTPUT.WITH AMOL MIDLINE,IVF WITH 20 MEQ KCL INFUSING AT 100ML/HR RATE VIA IV PUMP,SITE PATENT.ABDOMEN DISTENDED BUT SOFT,REPOSITION Q 2 HOURS PER PROTOCOL,CALL LIGHT IN REACH,NEEDS ANTICIPATED.
[2021-11-28 20:00] VITALS: BP 146/98
[2021-11-28] MEDS: LACTULOSE 10 G/15 ML UDC (PYXIS) PO SCH (21:15)
[2021-11-28] MEDS: SENNOSIDES 8.6 MG TABLET PO SCH (21:16)
[2021-11-28] MEDS: SIMVASTATIN 20 MG TABLET PO SCH (21:16)
[2021-11-29] MEDS: METOCLOPRAMIDE HCL 10 MG/2 ML VIAL IV SCH ×2 (02:13→09:17)
--- NOTE | 2021-11-29 06:55 | NUR ---
MS RN NOTES SLEEP WITH INTERVALS,HAD BOWEL MOVEMENT.PARKER CATH IN PLACE,DNR STATUS.NO DISTRESS.
--- NOTE | 2021-11-29 07:30 | NUR ---
MS RN OPENING NOTES RECEIVED PT ON BED AWAKE AND AOx4, SETSWANA AND ROMANSH SPEAKING. ON RA TOLERATING WELL. NO SOB NOTED. NO S/SX OF RESPIRATORY DISTRESS NOTED. IV ACCESS AT RIGHT UPPER ARM WITH D51/2NS WITH 20MEQ KCL AT 100 ML/HR INFUSING WELL. SAFETY PRECAUTIONS IN PLACE: BED IN LOWEST, LOCKED POSITION, SIDE RAILS UPx2, AND BRAKES ON. TABLE AND CALL LIGHT WITHIN REACH. WILL CONTINUE TO MONITOR.
[2021-11-29 08:00] VITALS: BP 172/90
[2021-11-29 08:59] LABS: BASOPHILS # (AUTO) 0.1 K/uL (0.0-0.2); BASOPHILS % (AUTO) 0.9 % (0.0-2.0); EOSINOPHILS % (AUTO) 1.7 % (0.0-6.0); HEMATOCRIT 35 % (33-45); HEMOGLOBIN 12.1 g/dL (11.5-14.8); LYMPHOCYTES # (AUTO) 1.3 K/uL (0.8-4.8); LYMPHOCYTES % (AUTO) 18.3 % (20.0-44.0); MEAN CORPUSCULAR HGB CONC 34 g/dl (31.0-36.0); MEAN CORPUSCULAR VOLUME 87 fL (82-100); MONOCYTES # (AUTO) 0.5 K/uL (0.1-1.30); MONOCYTES % (AUTO) 6.4 % (2.0-12.0); NEUTROPHILS # (AUTO) 5.2 K/uL (1.8-8.9); NEUTROPHILS % (AUTO) 72.7 % (43.0-81.0); PLATELET COUNT (AUTO) 274 K/uL (150-450); RED BLOOD CELL COUNT(AUTO) 4.04 MIL/uL (4.0-5.2); WHITE BLOOD COUNT (AUTO) 7.2 K/uL (4.3-11.0)
[2021-11-29] MEDS ORDERED: PANTOPRAZOLE 40 MG TABLET.DR PO SCH (09:00)
[2021-11-29 09:07] LABS: CALCIUM, SERUM 8.5 mg/dL (8.5-10.1); CREATININE 0.6 mg/dL (0.6-1.3)
[2021-11-29] MEDS: MAGNESIUM OXIDE 400 MG TABLET PO SCH (09:17)
[2021-11-29] MEDS: MULTIVIT W/MINERALS 1 TAB TABLET PO SCH (09:17)
[2021-11-29] MEDS: CARBIDOPA/LEVODOPA 25/100 MG 1 UDTAB PO SCH (09:17)
[2021-11-29] MEDS: POTASSIUM CHLORIDE 10 MEQ TABLET.SA PO SCH (09:17)
[2021-11-29] MEDS: DOCUSATE SODIUM 100 MG CAPSULE PO SCH (09:17)
[2021-11-29] MEDS: ENSURE CLEAR 237 ML LIQUID (MIX BERRY) PO SCH (09:18)
[2021-11-29] MEDS: POLYVINYL ALCOHOL 15 ML BOTTLE EACHEYE SCH (09:18)
[2021-11-29] MEDS: SIMETHICONE 80 MG TAB.CHEW PO SCH (09:26)
[2021-11-29] MEDS ORDERED: POTA-10 PO (09:49)
[2021-11-29] MEDS ORDERED: POTASSIUM CHLORIDE 20 MEQ TAB.PRT.SR PO ONE (10:00)
--- NOTE | 2021-11-29 14:00 | NUR ---
HYDRAULIC REPAIRER NOTES PATIENT WAS SEEN BY DR. YING AND ORDERED PATIENT FOR DISCHARGE. PATIENT IS FOR DISCHARGE TO SNF. DISCHARGE AND MEDICATION INSTRUCTIONS AND EDUCATION PROVIDED TO THE PATIENT. PATIENT VERBALIZED UNDERSTANDING. PATIENT UNABLE TO SIGN DISCHARGE FORM AND BELONGINGS LIST FORM DUE TO BOTH ARMS WEAKNESS. GIVEN REPORT TO NELY FERGUSON FROM [facility]. REMOVED PARKER CATHETER, IV LINE AND WRIST NAME BAND. PATIENT WAS PICKED UP BY AMBULANCE PERSONNEL IN STABLE CONDITION. MD AND CHARGE NURSE ARE AWARE OF THE DISCHARGE.
== END 2021-11-29 14:10 | DRG 392 ==
LOC: ER 00:32 → TRANSITION 05:07 → MED 06:29 → TELE 12:44 → MED 11-24 13:08
PROVIDERS: ADMIT Internal Medicine; ATTEND Internal Medicine
PROC: 05HB33Z Insertion of Infusion Device into Right Basilic Vein, Percutaneous Approach (ICD-10-PCS; principal; 2021-11-28)
DX: K59.81 Ogilvie syndrome (principal); K56.609 Unspecified intestinal obstruction, unspecified as to partial versus complete obstruction; K56.7 Ileus, unspecified; E87.6 Hypokalemia; K21.9 Gastro-esophageal reflux disease without esophagitis; G20 Parkinson's disease; I10 Essential (primary) hypertension; F32.9 Major depressive disorder, single episode, unspecified; Z91.041 Radiographic dye allergy status; Z79.899 Other long term (current) drug therapy; G62.9 Polyneuropathy, unspecified; G90.8 Other disorders of autonomic nervous system; M19.90 Unspecified osteoarthritis, unspecified site; Z90.49 Acquired absence of other specified parts of digestive tract; R13.10 Dysphagia, unspecified; Z86.73 Personal history of transient ischemic attack (TIA), and cerebral infarction without residual deficits; E78.5 Hyperlipidemia, unspecified
CPT/HCPCS: 36415; 74018; 80048-TC; 80076-TC; 82962-TC; 83690-TC; 83735-TC; 84100-TC; 84132-TC; 84300-TC; 85025-TC; 87081-TC; 97112-TC; 97530-TC; A6253; C9113; G0378; J2270; J2405; J2765; J3480; J3490; J7030; J7060